=== PATIENT | female | born 1960 | race Caucasian/White ===

== ENCOUNTER 2017-07-11 03:47 | Emergency (ER) | payer OTHER ==
[~2017-07-11] VITALS: Ht 170.2 cm; Wt 104.9 kg
[~2017-07-11 03:47] MED LIST: BUPR-79 PO; CYAN3INJ IM; LISI-461 PO; QUET1TAB30 PO; TRAZ50TA35 PO
[2017-07-11 03:50] VITALS: Ht 170.2 cm; Wt 104.9 kg
[2017-07-11] MEDS ORDERED: GLUCAGON INJ 1 MG in SYRINGE 0 ML IV STA (04:06)
[2017-07-11] MEDS ORDERED: GLUCAGON FOR INJ 1 MG VIAL ONE (04:13)
--- NOTE | 2017-07-11 04:20 | EMERGENCY ROOM VISIT NOTE ---
History First contact with patient: 03:56 Chief Complaint: FOOD BOLUS Stated Complaint: DISCOMFORT-FEELS LIKE SOMETHING IS STUCK History of Present Illness The patient is a 56 year old female who presents to the Emergency Room with complaints of something stuck in her throat. The patient reports that she was eating a pork chop approximately 10 hours ago for dinner and felt it get stuck in her throat. She states she has been unable to swallow her own saliva. She has attempted drinking water but states that it "comes right back up." The patient has a history of gastric bypass 7 years ago and states that she has had food boluses in the past, but they typically pass on their own within 30 minutes. She denies any trouble breathing. She denies any abdominal pain. Review of Systems A complete 10 point review of systems was reviewed with the patient with pertinent positives and negatives as per history of present illness. All else were negative. Past Medical/Surgical History Medical Problems: (1) Coronary artery bypass grafting (2) ESOPHAGEAL REFLUX (3) History of total hysterectomy (4) HYPERTENSION NOS Social History Smoking Status: Never Smoker Alcohol Use: occasionally Drug Use: none Housing Status: lives alone Current/Historical Medications Scheduled Lisinopril (Zestril), 10 MG PO QAM Quetiapine Fumarate (Seroquel), 25 MG PO HS Trazodone Hcl (Trazodone), 50 MG PO HS Physical Exam Vital Signs Date Time Temp Pulse Resp B/P (MAP) Pulse Ox O2 Delivery O2 Flow Rate FiO2 07/11/17 06:21 72 16 171/99 97 Room Air 07/11/17 05:06 71 24 170/99 96 Room Air 07/11/17 04:08 98 Room Air 98 07/11/17 03:50 36.8 80 16 173/103 98 Room Air Physical Exam VITALS: Vitals are noted on the nurse's note and reviewed by myself. Vital signs stable. GENERAL: This is a 56-year-old female, spitting into an emesis bag, well- developed well-nourished. MOUTH: Mucous membranes moist, airway patent. HEART: Regular rate and rhythm without murmurs gallops or rubs. LUNGS: Clear to auscultation bilaterally without wheezes, rales or rhonchi. No retractions or accessory muscle use. ABDOMEN: Positive bowel sounds x 4. Soft, nontender. NEURO: Patient was alert and oriented to person place and time. Medical Decision & Procedures Medications Administered Medications (Trade) Dose Ordered Sig/Shane Route Start Time Stop Time Status Last Admin Dose Admin Glucagon (Glucagon Inj) 1 mg STK-MED ONCE .ROUTE 07/11/17 04:13 07/11/17 04:14 DC 07/11/17 04:17 1 MG Diazepam (Valium Inj) 5 mg NOW STAT IV 07/11/17 04:58 07/11/17 04:59 DC 07/11/17 05:06 5 MG ED Course The patient was evaluated as above. Labs were drawn and IV access was obtained. Patient was medicated with 1 mg Glucagon IV. Patient was given 5 mg Valium IV. Patient was reevaluated. She was unable to pass the food bolus. Dr. Schaefer of gastroenterology was consulted. He will take the patient to the OR for endoscopy. Patient was taken to the OR for endoscopy and food bolus removal. Medical Decision The patient was evaluated as above. She presents with inability to swallow saliva after a food bolus. Patient was eating a pork chop yesterday evening and felt something get stuck in her throat. She was treated with glucagon and Valium without success. She was taken to the OR by Dr. Schaefer for endoscopy. Medication Reconcilliation Current Medication List: was personally reviewed by me Blood Pressure Screening Patient's blood pressure: Elevated blood pressure Blood pressure disposition: Elevated BP felt to be situational Impression Primary Impression: Food impaction of esophagus Departure Information Referrals Antwan Lee M.D. (PCP) Patient Instructions My [facility] Problem Qualifiers Primary Impression: Food impaction of esophagus Encounter type: initial encounter Qualified Codes: T18.128A - Food in esophagus causing other injury, initial encounter
[2017-07-11] MEDS ORDERED: DIAZEPAM INJ 5 MG/ML 2 ML CARP IV STA (04:58)
[2017-07-11 06:21] VITALS: O2SAT 97
[2017-07-11] MEDS ORDERED: PROPOFOL IV EMULSION 10 MG/ML 20 ML VIAL IV ONE (06:53)
[2017-07-11] MEDS ORDERED: LIDOCAINE HCL 2% 2 ML VIAL (20MG/ML) ONE (06:53)
[2017-07-11] MEDS ORDERED: SUCCINYLCHOLINE CHLORIDE 20 MG/ML 10 ML VIAL IV ONE (06:53)
[2017-07-11] MEDS ORDERED: FENTANYL CITRATE INJ 50 MCG/1 ML 2 ML VIAL ONE ×2 (06:56→07:54)
[2017-07-11] MEDS ORDERED: SODIUM CHLORIDE 0.9% 500ML 500 ML IV SCH (07:18)
--- NOTE | 2017-07-11 07:18 | Endo History and Physical ---
History & Physical Date of Service: Jul 11, 2017. Chief Complaint: food bolus with pork chop Referring Physician: History of Present Illness food bolus began last evening Past Surgical History Hx Post-Op Nausea and Vomiting: Yes Social History Smoking Status: Never Smoker Allergies Coded Allergies: Aspirin (Verified Allergy, Unknown, HIVES, 07/11/17) Caffeine (Verified Allergy, Unknown, HIVES, 07/11/17) Cinnamedrine (Verified Allergy, Unknown, HIVES, 07/11/17) Current Medications Reported Home Medications Medications Dose Route/Sig Max Daily Dose Days Date Category Trazodone (Trazodone HCl) 50 Mg Tab 50 Mg PO HS 10/19/12 Reported Zestril (Lisinopril) 10 Mg Tab 10 Mg PO QAM 10/19/12 Reported Vital Signs Weight (Kilograms): 104.900 Height (Feet): 5 Height (Inches): 7.00 Date Time Temp Pulse Resp B/P (MAP) Pulse Ox O2 Delivery O2 Flow Rate FiO2 07/11/17 06:21 72 16 171/99 97 Room Air 07/11/17 05:06 71 24 170/99 96 Room Air 07/11/17 04:08 98 Room Air 98 07/11/17 03:50 36.8 80 16 173/103 98 Room Air Physical Exam General Appearance: WD/WN, no apparent distress Respiratory/Chest: Auscultation: breath sounds normal Cardiovascular: Heart Auscultation: RRR Abdomen: Bowel Sounds: normal Inspection & Palpation: soft, non-distended, no tenderness, guarding & rebound Assessment and Plan EGD for food bolus removal
[2017-07-11] MEDS ORDERED: NALOXONE HCL 0.4 MG/1 ML VIAL/CARP IV PRN (07:30)
[2017-07-11] MEDS ORDERED: MEPERIDINE HCL 25 MG/ML CARP IV PRN (07:30)
[2017-07-11] MEDS ORDERED: LABETALOL HCL IV 5 MG/ML 20ML IV PRN (07:30)
[2017-07-11] MEDS ORDERED: EpHEDrine SULFATE INJ 50 MG/ML AMP IV PRN (07:30)
[2017-07-11] MEDS ORDERED: FLUMAZENIL 0.1 MG/1 ML 10 ML VIAL IV PRN (07:30)
[2017-07-11] MEDS ORDERED: ATROPINE SULFATE 0.1 MG/ML 5ML SYR IV PRN (07:30)
[2017-07-11] MEDS ORDERED: ONDANSETRON INJ 2 MG/ML 2 ML VIAL IV PRN (07:30)
[2017-07-11] MEDS ORDERED: HYDROmorphone INJ 2 MG/ML SYR/VIAL IV PRN (07:30)
[2017-07-11] MEDS ORDERED: FENTANYL CITRATE INJ 50 MCG/1 ML 2 ML VIAL IV PRN (07:30)
[2017-07-11] MEDS ORDERED: PHENYLEPHRINE 100MCG/ML 5ML SYR IV PRN (07:30)
[2017-07-11] MEDS ORDERED: DEXAMETHASONE SOD INJ 4 MG/ML VIAL ONE (07:43)
[2017-07-11] MEDS ORDERED: ONDANSETRON INJ 2 MG/ML 2 ML VIAL ONE (07:43)
--- NOTE | 2017-07-11 08:02 | Discharge Instructions ---
Endoscopy Patient Instructions Date / Procedure(s) Performed Jul 11, 2017. EGD Allergy Information Coded Allergies: Aspirin (Verified Allergy, Unknown, HIVES, 07/11/17) Caffeine (Verified Allergy, Unknown, HIVES, 07/11/17) Cinnamedrine (Verified Allergy, Unknown, HIVES, 07/11/17) Discharge Date / Findings Jul 11, 2017. food bolus removed and advanced into the small bowel Medication Instructions Restart Stopped Medication(s): Reported Home Medications Medications Dose Route/Sig Max Daily Dose Days Date Category Trazodone (Trazodone HCl) 50 Mg Tab 50 Mg PO HS 10/19/12 Reported Zestril (Lisinopril) 10 Mg Tab 10 Mg PO QAM 10/19/12 Reported Carafate 1 gram susp four times daily for 4 weeks Reported Home Medications Medications Dose Route/Sig Max Daily Dose Days Date Category Trazodone (Trazodone HCl) 50 Mg Tab 50 Mg PO HS 10/19/12 Reported Zestril (Lisinopril) 10 Mg Tab 10 Mg PO QAM 10/19/12 Reported Carafate 1 gram susp four times daily for 4 weeks Provider Instructions Activity Restrictions - No exercising or heavy lifting for 24 hours. - Do not drink alcohol the day of the procedure. - Do not drive a car or operate machinery until the day after the procedure. - Do not make any important decisions or sign important papers in 24 hours after the procedure. Following Day: - Return to full activity which may include returning to work/school. Diet Start your diet with liquids and light foods (jello, soup, juice, toast). Then eat your usual diet if not nauseated. Treatment For Common After Affects For mild abdominal pain, bloating, or excessive gas: - Rest - Eat lightly - Lie on right side Follow-Up Information Follow-up with as scheduled Anesthesia Information What You Should Know You have had a procedure that required some medicine to reduce anxiety and discomfort. This treatment is called moderate sedation. After receiving the treatment, you may be sleepy, but you will be able to breathe on your own. The effects of the treatment may last for several hours. Follow these instructions along with Activity/Diet recommendations noted above: * Do NOT do anything where dizziness or clumsiness would be dangerous. * Rest quietly at home today, then you can be up and about tomorrow. * Have a responsible person stay with you the rest of today. * You may have had an I.V. today. If so, you may take the dressing off later today. Recommendations Call your doctor if: * Trouble breathing * Continuous vomiting for more than 24 hours * Temperature above 101 degrees * Severe abdominal pain or bloating * Pain not relieved by pain medicine ordered * There is increased drainage or redness from any incision * A large amount of rectal bleeding greater than 2-3 tablespoons. (If you had a polyp/s removed or have hemorrhoids, a small amount of blood - from the rectum is to be expected.) * You have any unanswered questions or concerns. IN THE EVENT OF A SERIOUS EMERGENCY, GO TO THE NEAREST EMERGENCY ROOM Your discharge instructions were prepared by provider Nba Schaefer. Patient Instructions Signature Page Yuki Sethi Patient (or Guardian) Signature/Date: I have read and understand the instructions given to me by my caregivers. Caregiver/RN/Doctor Signature/Date: The above-named patient and/or guardian has received patient instructions on this date. + Original Patient Signature Page (only) stays with chart. Please make copy for patient.
[2017-07-11] MEDS ORDERED: BACITRACIN OINT 15 GM TUBE ONE (08:05)
--- NOTE | 2017-07-11 08:12 | GI REPORT ---
Procedure Date: 07/11/2017 7:04 AM Procedure: Upper GI endoscopy Indications: Dysphagia, Foreign body in the esophagus Medicines: General Anesthesia Complications: No immediate complications. Estimated blood loss: None. Estimated Blood Loss: Estimated blood loss: none. Estimated blood loss: none. Procedure: Pre-Anesthesia Assessment: - Prior to the procedure, a History and Physical was performed, and patient medications and allergies were reviewed. The patient's tolerance of previous anesthesia was also reviewed. The risks and benefits of the procedure and the sedation options and risks were discussed with the patient. All questions were answered, and informed consent was obtained. Prior Anticoagulants: The patient has taken no previous anticoagulant or antiplatelet agents. ASA Grade Assessment: II - A patient with mild systemic disease. After reviewing the risks and benefits, the patient was deemed in satisfactory condition to undergo the procedure. After obtaining informed consent, the endoscope was passed under direct vision. Throughout the procedure, the patient's blood pressure, pulse, and oxygen saturations were monitored continuously. The Scope was introduced through the mouth, and advanced to the jejunum. The upper GI endoscopy was accomplished without difficulty. The patient tolerated the procedure well. Findings: The examined esophagus was normal. Food was found in the lower third of the esophagus and at the gastroesophageal junction. Removal of food was accomplished. removed by combinatiom of snare removal and gentle advancement Evidence of a gastric bypass was found. A gastric pouch with a normal size was found containing food debris and suture material. The staple line appeared intact. The gastrojejunal anastomosis was characterized by congestion. This was traversed. The [id number] limb was characterized by healthy appearing mucosa. The examined jejunum was normal. Impression: - Normal esophagus. - Food in the lower third of the esophagus and at the gastroesophageal junction. Removal was successful. - Gastric bypass with a normal-sized pouch and intact staple line. Gastrojejunal anastomosis characterized by congestion. Recommendation: - Discharge patient to home (ambulatory). - Mechanical soft diet today. - Continue present medications. - Use sucralfate suspension 1 gram PO QID for 4 weeks. MD Nba Sarkar MD 07/11/2017 8:11:34 AM This report has been signed electronically. Note Initiated On: 07/11/2017 7:04 AM I attest to the content of the Intraoperative Record and orders documented therein, exceptions below
--- NOTE | 2017-07-11 08:26 | Anesthesiology Progress Note ---
Anesthesia Post Op Note Date & Time Jul 11, 2017 at 08:25 Vital Signs Pain Intensity: 0 Vital Signs Past 12 Hours Date Time Temp Pulse Resp B/P (MAP) Pulse Ox O2 Delivery O2 Flow Rate FiO2 07/11/17 08:06 37.1 80 16 166/93 96 Room Air 07/11/17 06:21 72 16 171/99 97 Room Air 07/11/17 05:06 71 24 170/99 96 Room Air 07/11/17 04:08 98 Room Air 98 07/11/17 03:50 36.8 80 16 173/103 98 Room Air Notes Mental Status: alert / awake / arousable, participated in evaluation Pt Amnestic to Procedure: Yes Nausea / Vomiting: adequately controlled Pain: adequately controlled Airway Patency, RR, SpO2: stable & adequate BP & HR: stable & adequate Hydration State: stable & adequate Anesthetic Complications: no major complications apparent The patient did well. She had a very small skin tear on her L cheek from the ETT tape. Bacitracin was dabbed on it. She is awake and comfortable in the PACU.
--- NOTE | 2017-07-11 08:28 | GASTROINTESTINAL CONSULTATION ---
DATE OF CONSULTATION: 07/11/2017 EMERGENCY ROOM GASTROINTESTINAL CONSULT CHIEF COMPLAINT: Food bolus, unable to handle saliva. HISTORY OF PRESENT ILLNESS: This is a 56-year-old white female who was eating pork chops last evening. The patient developed inability to swallow and handle her saliva or take clears. She has had similar episodes of this in the past; however, was always able to regurgitate or the food would eventually pass. In this instance it had been several hours and she presented to the Emergency Room. There was no hematemesis or coffee ground emesis. She has not had any reports of chronic weight loss liquid dysphagia. PAST MEDICAL HISTORY: Includes hypertension and morbid obesity for which she underwent gastric bypass surgery in 2007 at [facility]. She also had a partial hysterectomy with ovaries intact and in addition she had coronary artery bypass grafting. ALLERGIES: No known drug allergies. MEDICATIONS: Lisinopril, Seroquel and trazodone. FAMILY HISTORY: Noncontributory. SOCIAL HISTORY: Denies tobacco use. Occasionally uses alcoholic beverages, lives alone. REVIEW OF SYSTEMS: Otherwise noncontributory based on 13-point exam except for noted above. The patient has never had an upper endoscopy by her recollection to remove a food bolus. PHYSICAL EXAMINATION: VITAL SIGNS: On admission 173/103, temperature 36.8, heart rate 80, respirations 16, and 98% on room air. The patient was given glucagon and Valium without benefit. GENERAL: Today the patient is awake, alert and oriented x3. HEENT: Sclerae are anicteric, conjunctiva moist. Oral mucosa moist. HEART: Normal S1, S2. LUNGS: Clear to auscultation. ABDOMEN: Soft, flat, nontender, nondistended with good bowel sounds. EXTREMITIES: Without clubbing, cyanosis or edema. RECTAL: Deferred. The patient is in no acute distress, but has a bag to expectorate saliva. There is no pain in the chest or shortness of breath. IMPRESSION AND PLAN: The patient with evidence of a food bolus obstruction. Will plan for urgent EGD for food bolus removal and assessment. Further recommendations to follow once the procedure is completed.
[2017-07-11 08:50] VITALS: BP 148/79; PULSE 70; TEMP 37; O2SAT 93
[2017-07-11 09:20] VITALS: BP 142/83; PULSE 84; TEMP 37; O2SAT 94
[2017-07-11 09:50] VITALS: BP 141/67; PULSE 70; TEMP 37; O2SAT 92
== END 2017-07-11 06:29 | disposition home or self-care (01) ==
LOC: C.EDB 03:48
DX: T18.108A Unspecified foreign body in esophagus causing other injury, initial encounter (principal); X58.XXXA Exposure to other specified factors, initial encounter; I10 Essential (primary) hypertension; K21.9 Gastro-esophageal reflux disease without esophagitis; E66.9 Obesity, unspecified; Z90.710 Acquired absence of both cervix and uterus; Z98.84 Bariatric surgery status

== ENCOUNTER → 2017-09-12 | Day surgery (SDC) | payer OTHER ==
[2017-07-29 15:10] VITALS: Ht 170.2 cm; Wt 97.7 kg
[~2017-09-12] VITALS: Ht 170.2 cm; Wt 97.7 kg
[~2017-09-12] MED LIST changes: -BUPR-79 PO; -CYAN3INJ IM; +LIDOCAINE HCL 2% 2 ML VIAL (20MG/ML) ONE; +PROPOFOL IV EMULSION 10 MG/ML 20 ML VIAL IV ONE; +SODIUM CHLORIDE 0.9% 500ML 500 ML IV ONE
--- NOTE | 2017-09-12 13:21 | Endo History and Physical ---
History & Physical Date of Service: Sep 12, 2017. Chief Complaint: Dysphagia Referring Physician: Khushboo Wilhelm History of Present Illness dysphagia Past Surgical History Hx Cardiac Surgery: No Hx Internal Defibrillator: No Hx Pacemaker: No Hx Abdominal Surgery: Yes (GASTRIC BYPASS, HYSTER) Hx of Implantable Prosthesis: No Hx Post-Op Nausea and Vomiting: No Hx Cancer Surgery: No Hx Thoracic Surgery: No Hx Orthopedic: No Hx Urinary Tract Surgery: No Family History None Social History Smoking Status: Never Smoker Hx Substance Use: No Hx Alcohol Use: Yes (OCCASIONAL) Allergies Coded Allergies: Aspirin (Verified Allergy, Unknown, HIVES, 07/29/17) Caffeine (Verified Allergy, Unknown, HIVES, 07/29/17) Cinnamedrine (Verified Allergy, Unknown, HIVES, 07/29/17) Current Medications Reported Home Medications Medications Dose Route/Sig Max Daily Dose Days Date Category Seroquel (Quetiapine Fumarate) 25 Mg Tab 25 Mg PO HS 10/19/12 Reported Trazodone (Trazodone HCl) 50 Mg Tab 50 Mg PO HS 10/19/12 Reported Zestril (Lisinopril) 10 Mg Tab 10 Mg PO QAM 10/19/12 Reported Vital Signs Weight (Kilograms): 97.73 Height (Feet): 5 Height (Inches): 7 Date Time Temp Pulse Resp B/P (MAP) Pulse Ox O2 Delivery O2 Flow Rate FiO2 09/12/17 12:55 36.5 60 20 157/94 (115) 98 Room Air Physical Exam General Appearance: WD/WN, no apparent distress Respiratory/Chest: Auscultation: breath sounds normal Cardiovascular: Heart Auscultation: RRR Abdomen: Bowel Sounds: normal Inspection & Palpation: soft, non-distended, no tenderness, guarding & rebound Assessment and Plan EGd with possible bx/dilation for dysphagia
--- NOTE | 2017-09-12 14:05 | Discharge Instructions ---
Endoscopy Patient Instructions Date / Procedure(s) Performed Sep 12, 2017. EGD Allergy Information Coded Allergies: Aspirin (Verified Allergy, Unknown, HIVES, 07/29/17) Caffeine (Verified Allergy, Unknown, HIVES, 07/29/17) Cinnamedrine (Verified Allergy, Unknown, HIVES, 07/29/17) Discharge Date / Findings Sep 12, 2017. ? hypertonic LES - Medication Instructions Restart Stopped Medication(s): Reported Home Medications Medications Dose Route/Sig Max Daily Dose Days Date Category Seroquel (Quetiapine Fumarate) 25 Mg Tab 25 Mg PO HS 10/19/12 Reported Trazodone (Trazodone HCl) 50 Mg Tab 50 Mg PO HS 10/19/12 Reported Zestril (Lisinopril) 10 Mg Tab 10 Mg PO QAM 10/19/12 Reported Reported Home Medications Medications Dose Route/Sig Max Daily Dose Days Date Category Seroquel (Quetiapine Fumarate) 25 Mg Tab 25 Mg PO HS 10/19/12 Reported Trazodone (Trazodone HCl) 50 Mg Tab 50 Mg PO HS 10/19/12 Reported Zestril (Lisinopril) 10 Mg Tab 10 Mg PO QAM 10/19/12 Reported Provider Instructions Activity Restrictions - No exercising or heavy lifting for 24 hours. - Do not drink alcohol the day of the procedure. - Do not drive a car or operate machinery until the day after the procedure. - Do not make any important decisions or sign important papers in 24 hours after the procedure. Following Day: - Return to full activity which may include returning to work/school. Diet Start your diet with liquids and light foods (jello, soup, juice, toast). Then eat your usual diet if not nauseated. Treatment For Common After Affects For mild abdominal pain, bloating, or excessive gas: - Rest - Eat lightly - Lie on right side office visit in GI clinic with me over next few weeks may plan for barium esophagram may need motility assessment Follow-Up Information Follow-up with Khushboo Wilhelm as scheduled Anesthesia Information What You Should Know You have had a procedure that required some medicine to reduce anxiety and discomfort. This treatment is called moderate sedation. After receiving the treatment, you may be sleepy, but you will be able to breathe on your own. The effects of the treatment may last for several hours. Follow these instructions along with Activity/Diet recommendations noted above: * Do NOT do anything where dizziness or clumsiness would be dangerous. * Rest quietly at home today, then you can be up and about tomorrow. * Have a responsible person stay with you the rest of today. * You may have had an I.V. today. If so, you may take the dressing off later today. Recommendations Call your doctor if: * Trouble breathing * Continuous vomiting for more than 24 hours * Temperature above 101 degrees * Severe abdominal pain or bloating * Pain not relieved by pain medicine ordered * There is increased drainage or redness from any incision * A large amount of rectal bleeding greater than 2-3 tablespoons. (If you had a polyp/s removed or have hemorrhoids, a small amount of blood - from the rectum is to be expected.) * You have any unanswered questions or concerns. IN THE EVENT OF A SERIOUS EMERGENCY, GO TO THE NEAREST EMERGENCY ROOM Your discharge instructions were prepared by provider Nba Schaefer. Patient Instructions Signature Page Yuki Sethi Patient (or Guardian) Signature/Date: I have read and understand the instructions given to me by my caregivers. Caregiver/RN/Doctor Signature/Date: The above-named patient and/or guardian has received patient instructions on this date. + Original Patient Signature Page (only) stays with chart. Please make copy for patient.
--- NOTE | 2017-09-12 14:09 | GI REPORT ---
Procedure Date: 09/12/2017 1:24 PM Procedure: Upper GI endoscopy Indications: Dysphagia Medicines: Propofol per Anesthesia Complications: No immediate complications. Estimated blood loss: None. Estimated Blood Loss: Estimated blood loss: none. Procedure: Pre-Anesthesia Assessment: - Prior to the procedure, a History and Physical was performed, and patient medications and allergies were reviewed. The patient's tolerance of previous anesthesia was also reviewed. The risks and benefits of the procedure and the sedation options and risks were discussed with the patient. All questions were answered, and informed consent was obtained. Prior Anticoagulants: The patient has taken no previous anticoagulant or antiplatelet agents. ASA Grade Assessment: II - A patient with mild systemic disease. After reviewing the risks and benefits, the patient was deemed in satisfactory condition to undergo the procedure. After obtaining informed consent, the endoscope was passed under direct vision. Throughout the procedure, the patient's blood pressure, pulse, and oxygen saturations were monitored continuously. The scope was introduced through the mouth, and advanced to the jejunum. The upper GI endoscopy was accomplished without difficulty. The patient tolerated the procedure well. Findings: The examined esophagus was normal. A hypertonic lower esophageal sphincter was found. There was mild resistance to endoscope advancement into the stomach. The Z-line was regular. A TTS dilator was passed through the scope. Dilation with an 18-19-20 mm balloon dilator was performed to 18 mm, 19 mm and 20 mm. The dilation site was examined and showed mild improvement in luminal narrowing. Evidence of a gastric bypass was found. A gastric pouch with a normal size was found containing simon. The staple line appeared intact. The gastrojejunal anastomosis was characterized by healthy appearing mucosa. This was traversed. The [id number] limb was characterized by healthy appearing mucosa. Impression: - Normal esophagus. - Gastric bypass with a normal-sized pouch and intact staple line. Gastrojejunal anastomosis characterized by healthy appearing mucosa. - No specimens collected. Recommendation: - Discharge patient to home (ambulatory). - Return to GI clinic at appointment to be scheduled. - May consider barium swallow with tablet and possible HREM to exclude achalasia MD Nba Sarkar MD 09/12/2017 2:09:17 PM This report has been signed electronically. Note Initiated On: 09/12/2017 1:24 PM I attest to the content of the Intraoperative Record and orders documented therein, exceptions below
--- NOTE | 2017-09-12 14:18 | Anesthesiology Progress Note ---
Anesthesia Post Op Note Date & Time Sep 12, 2017 at 14:18 Vital Signs Pain Intensity: 0 Vital Signs Past 12 Hours Date Time Temp Pulse Resp B/P (MAP) Pulse Ox O2 Delivery O2 Flow Rate FiO2 09/12/17 14:07 53 18 143/72 (95) 96 Room Air 09/12/17 13:52 76 16 128/76 (93) 95 Room Air 09/12/17 12:55 36.5 60 20 157/94 (115) 98 Room Air Notes Mental Status: alert / awake / arousable, participated in evaluation Pt Amnestic to Procedure: Yes Nausea / Vomiting: adequately controlled Pain: adequately controlled Airway Patency, RR, SpO2: stable & adequate BP & HR: stable & adequate Hydration State: stable & adequate Anesthetic Complications: no major complications apparent
[2017-09-12 14:22] VITALS: BP 160/82; PULSE 53; O2SAT 96
== END ==
LOC: C.GI 12:19
PROVIDERS: ATTEND Internal Medicine Gastroenterology
DX: R13.10 Dysphagia, unspecified (principal); K21.9 Gastro-esophageal reflux disease without esophagitis; I10 Essential (primary) hypertension; F41.9 Anxiety disorder, unspecified; E66.9 Obesity, unspecified; Z98.84 Bariatric surgery status; Z90.710 Acquired absence of both cervix and uterus; Z88.6 Allergy status to analgesic agent

== ENCOUNTER 2020-01-08 07:40 | Observation (INO) ==
--- OUTSIDE RECORDS SUMMARY | 2020-01-08 07:42 | External Medical Summary | Continuity of Care Document ---
:1960 Author Name Yamile Cox, Provider Address Unavailable Unavailable , Care Team Providers Name Role Phone Unavailable Unavailable Unavailable TERESA SILVESTRE Unavailable Unavailable Unavailable Unavailable Unavailable Problems Tinnitus of both ears (388.30) (H93.13) Rhinitis (472.0) (J31.0) Nasal congestion (478.19) (R09.81) Ringing In The Ears Which Pulsates Eustachian tube dysfunction (381.81) (H69.80) Hypertrophy of nasal turbinates (478.0) (J34.3) Acquired deviated nasal septum (470) (J34.2) Hypertension (401.9) (I10) Allergies and Adverse Reactions No Known Drug Allergies (Allergy) Medications buPROPion HCl ER (SR) 150 MG Oral Tablet Extended Release 12 Hour , M.D. Refills: 0 SEROquel 50 MG Oral Tablet , M.D. Refills: 0 Cyanocobalamin 1000 MCG/ML Injection Solution , M.D. Refills: 0 Lisinopril 10 MG Oral Tablet , M.D. Refills: 0 Hydrocortisone Acetate 1 % CREA , M.D. Refills: 0 Zoloft 100 MG Oral Tablet , M.D. Refills: 0 Vitamin D CAPS , M.D. Refills: 0 Multi-Vitamin Gummies Oral Tablet Chewable , M.D. Refills: 0 Procedures History of Tonsillectomy With Adenoidectomy Status: Completed History of Hysterectomy Status: Complete d History of Gastric Surgery For Morbid Obesity Gastric Bypass Status: Completed Immunizations Immunizations not documented Family History Unknown Family Member Family history of Diabetes Mellitus (V18.0) Status: Active Comments: Family History Family history of Hypertension (V17.49) Status: Active Comments: Family History Social History - Smoking Status Never smoked tobacco Plan of Treatment Planned Observations Planned Goals not documented Results No Known Results Results not documented
--- OUTSIDE RECORDS SUMMARY | 2020-01-08 07:43 | External Medical Summary | Continuity of Care Document ---
:1960 Author Name Yamile Cox, Provider Address Unavailable Unavailable , Care Team Providers Name Role Phone Unavailable Unavailable Unavailable TERESA SILVESTRE Unavailable Unavailable Unavailable Unavailable Unavailable Problems Ringing In The Ears Which Pulsates Nasal congestion (478.19) (R09.81) Rhinitis (472.0) (J31.0) Hypertension (401.9) (I10) Acquired deviated nasal septum (470) (J34.2) Hypertrophy of nasal turbinates (478.0) (J34.3) Eustachian tube dysfunction (381.81) (H69.80) Tinnitus of both ears (388.30) (H93.13) Allergies and Adverse Reactions No Known Drug [...]
[2020-01-08] MEDS ORDERED: ONDANSETRON INJ 2 MG/ML 2 ML VIAL IV STA (08:05)
[2020-01-08] MEDS ORDERED: KETOROLAC TROMETHAMINE 15 MG/ML VIAL IV STA (08:05)
[2020-01-08] MEDS ORDERED: SODIUM CHLORIDE 0.9% 1000ML 1,000 ML IV SCH ×2 (08:05→12:15)
[2020-01-08] MEDS ORDERED: FAMOTIDINE 20MG IV PUSH 20 MG/5 ML SYR IV STA (08:05)
--- NOTE | 2020-01-08 08:19 | Emergency Department Note ---
History of Present Illness General Chief complaint: Vomiting Stated complaint: VOMITING,HEADACHE Time Seen by Provider: 01/08/20 07:47 History of Present Illness Maximum Pain Intensity: 8 Patient is a 59-year-old female with past medical history significant for hypertension, insomnia, anxiety and depression, and who is status post gastric bypass who presents the emergency department for evaluation of the acute onset of nausea and vomiting roughly 14 hrs. ago. Patient relates that she was feeling well was in her usual state of health yesterday. She had a normal dinner, she states that she soft Syrian rice and ground beef. She states that around 1830, she had a cup of tea, subsequently vomited. Since then, she has had near constant nausea and multiple episodes of vomiting, dry heaves and spitting up of saliva. She denies hematemesis. No diarrhea. She tried sipping on tea and eating crackers through the night but the "just came back up." She did not have any medications to try. She reports nausea, a burning indigestion discomfort, but no true abdominal pain. She denies any unusual food or water consumption, no sick contacts at home or work. She has municipal water as a source at home. No foreign travel or camping recently. She denies any associated fever or UTI symptoms. She also reports a constant, throbbing, frontal headache. She does have a history of gastric bypass surgery, denies any complications from this. She does however note that she has had food boluses in the past, generally they have cleared on their own, she only required an EGD for disimpaction of a food bolus once, this was 2 years ago. She does not have a sensation reports that this does not feel like her prior food bolus episodes. She currently rates her headache an 01/10. Home Medications Home Medications Medication Instructions Recorded Confirmed Type amlodipine 5 mg PO QAM 01/08/20 01/08/20 History bupropion HCl 300 mg PO DAILY 01/08/20 01/08/20 History lisinopril 10 mg PO QAM 01/08/20 01/08/20 History quetiapine 25 mg PO HS 01/08/20 01/08/20 History trazodone 50 mg PO HS 01/08/20 01/08/20 History Allergies Allergy/AdvReac Type Severity Reaction Status Date / Time pamabrom [From [facility]] AdvReac Unknown Hives Unverified 01/08/20 08:08 Cinnamedrine Allergy Unknown HIVES Uncoded 09/12/17 15:10 Past Med/Surg History Medical History Anxiety (Chronic) Depression (Chronic) HLD (hyperlipidemia) Hypertension (Chronic) Insomnia (Chronic) Surgical History History of esophagogastroduodenoscopy (EGD) History of gastric bypass History of hysterectomy Family History Other Diabetes Hypertension Social History Smoking Status: Never smoker Hx Alcohol Use: Yes Alcohol Intake Frequency: Monthly or Less Preferred Language: Indonesian marital status: Single Current Living Situation: Alone current occupational status: employed Feels Safe at Home: Yes Review of Systems A total of 10 systems reviewed and were otherwise negative Physical Exam Vital Signs Vital Signs - 24 hr 01/08/20 07:43 01/08/20 09:29 01/08/20 10:14 Temperature 37.1 C Temperature Source Oral Pulse Rate 76 Pulse Rate [Finger] 62 68 Pulse Rhythm Regular Pulse Rhythm [Finger] Pulse Strength Normal Pulse Strength [Finger] Respiratory Rate 18 20 16 Respiratory Effort / Characteristics Non-Labored Respiratory Depth Normal Normal Respiratory Pattern Blood Pressure 162/93 H Blood Pressure [Right Arm] 183/105 H 154/85 H Blood Pressure Mean 116 Blood Pressure Mean [Right Arm] 131 108 Blood Pressure Position Sitting Blood Pressure Position [Right Arm] Pulse Oximetry 96 98 95 Oxygen Delivery Method Room Air Room Air Room Air Sepsis Recent Fever Within 48 Hours No Sepsis New/Unexplained Change in Mental Status No Sepsis Action Taken by Nursing No Action Required 01/08/20 11:46 01/08/20 13:05 Temperature 36.7 C Temperature Source Oral Pulse Rate Pulse Rate [Finger] 71 64 Pulse Rhythm Pulse Rhythm [Finger] Regular Pulse Strength Pulse Strength [Finger] Normal Respiratory Rate 16 20 Respiratory Effort / Characteristics Non-Labored Spontaneous Respiratory Depth Normal Respiratory Pattern Regular Blood Pressure Blood Pressure [Right Arm] 169/87 H 157/81 H Blood Pressure Mean Blood Pressure Mean [Right Arm] 114 106 Blood Pressure Position Blood Pressure Position [Right Arm] Sitting Pulse Oximetry 95 97 Oxygen Delivery Method Room Air Room Air Sepsis Recent Fever Within 48 Hours Sepsis New/Unexplained Change in Mental Status Sepsis Action Taken by Nursing CONSTITUTIONAL: Patient is an overweight 59-year-old female who is awake and alert and sitting on the chair at the bedside in mild distress due to her stated complaint. EYES: Pupils equal, round, reactive to light and accommodation. EOMs intact without nystagmus. Sclera are anicteric. ENT: Tympanic membranes intact, with normal landmarks. External canals are clear. Oral and nasopharynx are clear. Mucous membranes are moist, no lesions, tongue and gums appear normal. CARDIOVASCULAR: Regular rate and rhythm, with normal S1 and S2, no murmur or gallop or rub is heard. No carotid bruits auscultated. No JVD. Peripheral pulses easily palpable. RESPIRATORY: Breath sounds equal and clear to auscultation without wheezes, rales, or rhonchi heard. Full and equal chest expansion without accessory muscle use or retractions. ABDOMEN: Well-healed surgical scars are noted. Bowel sounds are hypoactive. Abdomen is soft, obese, nondistended, mildly tender to palpation in the upper abdomen, in the epigastric and left upper quadrant, without guarding or rebound. Remainder of the abdomen is nontender to palpation. There is no pain in the right lower quadrant over McBurney's point. INTEGUMENTARY: No lesions or rash, normal skin turgor. LYMPH: No lymphadenopathy. Course Course The patient was seen and assessed as above. Old records were reviewed. She presents to the emergency department for roughly 12 hours of nausea, vomiting/dry heaves, indigestion with associated headache. She has a benign abdominal exam. She does have a history of food bolus in the past, her presentation today, per her impression, does not appear consistent with that however. IV lock was initiated and laboratory studies were collected. CBC with differential, CMP, lipase and urinalysis were ordered. Patient was treated with a liter bolus of normal saline solution, Toradol 15 mg IV, Zofran 4 mg IV, and Pepcid 20 mg IV. Acute abdominal series was obtained. Laboratory studies noted a normal white count at 8900. No anemia. Left shift noted but no bands. Electrolytes are within normal limits. Renal functions are normal. Transaminases are not elevated. Lipase is within normal limits. The patient was reassessed when she returned from x-ray. She reported that her headache was improving, her stomach was still a little upset, she was still spitting out her saliva, but no eleuterio vomiting. She said she was willing to try ice chips or something to drink, but at this time told her to hold off, until her IV fluids were complete. Acute abdominal series was negative, no evidence for obstruction or free air. History and presentation were reviewed with Dr. Valderrama. Patient was reassessed. She was made aware of the results of her laboratory studies and her x-ray. Her headache is better, she no longer has any indigestion, but she still has a sense of heaviness and fullness in the epigastric region, and is still spitting out her saliva. We will treat her with medications for a possible food bolus. She was placed on continuous cardiac and pulse ox monitoring. She was given Valium 10 mg IV, glucagon 1 mg IV, Reglan 10 mg IV and 1 inch of Nitropaste was applied. Nursing staff notified me roughly 40 minutes after she had been medicated that she was feeling better, the sensation in her epigastrium was no longer there, and she was requesting to try oral fluids. She was given water, and tried this but promptly vomited it back up. The patient was reassessed. At this point, supportive/conservative care for her suspected food bolus has failed. Consultation was placed with GI, I spoke with Dr. Sawant, and he will plan to take her to the endoscopy suite for an EGD later today. He did ask that she be admitted to the medical service, as she will require observation overnight. I spoke with Dr. Piedra, with the [facility] for admission/observation, and she will see the patient. Cardiac monitoring: An order was placed for continuous cardiac monitoring. The monitor shows a normal sinus rhythm and seen 62 and 68 bpm. Administered Medications Discontinued Medications Diazepam (Valium) 10 mg IV NOW STA Stop: 01/08/20 09:35 Last Admin: 01/08/20 10:09 Dose: 10 mg Documented by: [id number] Sodium Chloride (Nss 1000ml) 1,000 mls @ 999 mls/hr IV .Q1H1M PRISCILLA Stop: 01/08/20 09:05 Last Infusion: 01/08/20 09:20 Dose: 0 mls/hr Documented by: [id number] Admin: 01/08/20 08:19 Dose: 999 mls/hr Documented by: [id number] Famotidine (Pepcid 20mg Iv Push) 20 mg in 5 mls @ 2.5 mls/min IV NOW STA Stop: 01/08/20 08:06 Last Admin: 01/08/20 08:19 Dose: 2.5 mls/min Documented by: [id number] Glucagon (Glucagen) 1 mls @ 1 mls/min IV ONE ONE Stop: 01/08/20 09:35 Last Admin: 01/08/20 10:06 Dose: 1 mls/min Documented by: [id number] Ketorolac Tromethamine (Toradol) 15 mg IV NOW STA Stop: 01/08/20 08:06 Last Admin: 01/08/20 08:24 Dose: 15 mg Documented by: [id number] Metoclopramide HCl (Reglan) 10 mg IV NOW STA Stop: 01/08/20 09:35 Last Admin: 01/08/20 10:09 Dose: 10 mg Documented by: [id number] Nitroglycerin (Nitro-Bid 2%) 1 inch EXT NOW STA Stop: 01/08/20 09:35 Last Admin: 01/08/20 10:06 Dose: 1 inch Documented by: [id number] Ondansetron HCl (Zofran) 4 mg IV NOW STA Stop: 01/08/20 08:06 Last Admin: 01/08/20 08:18 Dose: 4 mg Documented by: [id number] Medical Decision Making Differential Diagnosis Differential diagnoses include GERD, gastritis/esophagitis, food bolus, gastroenteritis, pancreatitis, cholelithiasis, cholecystitis, bowel obstruction, intussusception, hernia, among others. Medical Records Attestation: I reviewed the patient's medical records. Home Medications Current Medication List: was personally reviewed by me Laboratory Data Attestation: I reviewed the patient's lab results. Result diagrams: 01/08/20 08:11 01/08/20 08:11 Lab Results 01/08/20 01/08/20 01/08/20 Range/Units 08:11 08:11 11:15 WBC 8.99 (4.8-10.8) K/uL RBC 4.91 (4.2-5.4) M/uL Hgb 14.9 (12.0-16.0) g/dL Hct 44.0 (37-47) % MCV 89.6 (80-100) fL MCH 30.3 (25-34) pg MCHC 33.9 (32-36) g/dL RDW Std Deviation 46.8 H (36.4-46.3) fL RDW Coeff of Rufina 14.3 (11.5-14.5) % Plt Count 310 (130-400) K/uL MPV 9.5 (7.4-10.4) fL Immature Gran % (Auto) 0.1 % Neut % (Auto) 77.7 % Lymph % (Auto) 17.0 % Noble % (Auto) 4.8 % Eos % (Auto) 0.1 % Baso % (Auto) 0.3 % Neut # (Auto) 6.98 H (1.4-6.5) K/uL Lymph # (Auto) 1.53 (1.2-3.4) K/uL Noble # (Auto) 0.43 (0.11-0.59) K/uL Eos # (Auto) 0.01 (0-0.5) K/uL Baso # (Auto) 0.03 (0-0.2) K/uL Immature Gran # (Auto) 0.01 (0.00-0.02) K/uL Sodium 139 (136-145) mmol/L Potassium 3.8 (3.5-5.1) mmol/L Chloride 109 H (98-107) mmol/L Carbon Dioxide 23 (21-32) mmol/L Anion Gap 7.0 (3-11) BUN 15 (7-18) mg/dl Creatinine 0.81 (0.6-1.2) mg/dl Est Cr Clr Drug Dosing 99.6 ml/min Est GFR ( Amer) 90.9 Est GFR (Non-Af Amer) 78.4 BUN/Creatinine Ratio 18.0 (10-20) Glucose 118 H (70-99) mg/dl Calcium 9.0 (8.5-10.1) mg/dl Total Bilirubin 0.8 (0.2-1) mg/dl AST 16 (15-37) U/L ALT 25 (12-78) U/L Alkaline Phosphatase 89 (45-117) U/L Total Protein 8.1 (6.4-8.2) gm/dl Albumin 3.8 (3.4-5.0) gm/dl Globulin 4.3 H (2.5-4.0) gm/dl Albumin/Globulin Ratio 0.9 (0.9-2) Lipase 117 (73-393) U/L Urine Color Dark Yellow Urine Appearance Clear (Clear) Urine pH 5.0 (4.5-7.5) Ur Specific [place] 1.029 (1.000-1.030) Urine Protein Negative (Negative) Urine Glucose (UA) Negative (Negative) Urine Ketones Trace H (Negative) Urine Blood Negative (Negative) Urine Nitrite Negative (Negative) Urine Bilirubin Negative (Negative) Urine Urobilinogen Negative (Negative) Ur Leukocyte Esterase Negative (Negative) Imaging Data Attestation: I personally reviewed and interpreted this imaging study as follows: Radiologist's Impression: XR abdomen 2V w PA chest CLINICAL HISTORY: N/V X 12 HOURS COMPARISON STUDY: Chest x-ray dated 01/05/2010 FINDINGS: There is slightly prominent right infrahilar markings likely representing a vascular summation. There is no lobar consolidation. There is no free intraperitoneal air. There are no abnormally dilated loops of large or small bowel. There are no transition zones to indicate bowel obstruction. There are multiple nonspecific pelvic basin calcifications. IMPRESSION: No evidence of bowel obstruction. No evidence of free air. Blood Pressure Blood Pressure Findings: Elevated blood pressure Blood Pressure Disposition: further management by hospitalist [facility] Narrative See ED Course. Impression & Plan Food impaction of esophagus Discharge Plan Visit Data *Final* Discharge Date/Time: 01/08/20 12:28 Chief Complaint: Vomiting Stated Complaint: VOMITING,HEADACHE ED Provider: Sebastian Valderrama ED Midlevel Provider: Ton Toussaint Discharge Problem: Food impaction of esophagus Patient Disposition: Still a Patient Discharge Instructions Interventions: ED Discharge Assessment Last Done: 01/08/20 12:28 Discharge Problem: Food impaction of esophagus Qualifiers: Encounter type: initial encounter Qualified Code(s): T18.128A - Food in esophagus causing other injury, initial encounter
[2020-01-08 08:34] LABS: Basophils # (auto) 0.03 K/uL (0-0.2); Basophils % (auto) 0.3 %; Eosinophils # (auto) 0.01 K/uL (0-0.5); Eosinophils % (auto) 0.1 %; Hemoglobin 14.9 g/dL (12.0-16.0); Immature Granulocytes # (auto) 0.01 K/uL (0.00-0.02); Immature Granulocytes % (auto) 0.1 %; Lymphocytes # (auto) 1.53 K/uL (1.2-3.4); Mean Corpuscular Hemoglobin 30.3 pg (25-34); Mean Corpuscular Hgb Conc 33.9 g/dL (32-36); Mean Corpuscular Volume 89.6 fL (80-100); Mean Platelet Volume 9.5 fL (7.4-10.4); Monocytes # (auto) 0.43 K/uL (0.11-0.59); Monocytes % (auto) 4.8 %; Neutrophils # (auto) 6.98 K/uL (1.4-6.5); Neutrophils % (auto) 77.7 %; Platelet Count 310 K/uL (130-400); RDW Coefficient of Variation 14.3 % (11.5-14.5); RDW Standard Deviation 46.8 fL (36.4-46.3); Red Blood Count 4.91 M/uL (4.2-5.4); White Blood Count 8.99 K/uL (4.8-10.8)
[2020-01-08 08:50] LABS: Albumin Level 3.8 gm/dl (3.4-5.0); Creatinine Clr Calc Pharmacy 99.6 ml/min; Est GFR (African American) 90.9; Est GFR (Non-African American) 78.4; Potassium 3.8 mmol/L (3.5-5.1)
[2020-01-08 08:53] LABS: Albumin Globulin Ratio 0.9 (0.9-2); Bilirubin,Total 0.8 mg/dl (0.2-1); Globulin 4.3 gm/dl (2.5-4.0); Total Protein 8.1 gm/dl (6.4-8.2)
[2020-01-08] MEDS ORDERED: DIAZEPAM 5 MG/ML INJ 10ML VIAL IV STA (09:34)
[2020-01-08] MEDS ORDERED: GLUCAGON 1 ML IV ONE (09:34)
[2020-01-08] MEDS ORDERED: NITROGLYCERIN 2% OINTMENT 30GM TUBE EXT STA (09:34)
[2020-01-08] MEDS ORDERED: METOCLOPRAMIDE HCL INJ 5 MG/ML 2 ML VIAL IV STA (09:34)
--- NOTE | 2020-01-08 09:53 | XRay Report ---
XR abdomen 2V w PA chest CLINICAL HISTORY: N/V X 12 HOURS COMPARISON STUDY: Chest x-ray dated 01/05/2010 FINDINGS: There is slightly prominent right infrahilar markings likely representing a vascular summat ion. There is no lobar consolidation. There is no free intraperitoneal air. There are no abnormally d ilated loops of large or small bowel. There are no transition zones to indicate bowel obstruction. Th ere are multiple nonspecific pelvic basin calcifications. IMPRESSION: No evidence of bowel obstruction. No evidence of free air. ACT 112: Negative or not required by law. Electronically signed by: Bruno Salomon M.D. 01/08/2020 9:52 AM
[2020-01-08 11:28] LABS: Appearance Urine Clear (Clear); Bilirubin Urine Negative (Negative); Blood Urine Negative (Negative); Color Urine Dark Yellow; Glucose Urine UA Negative (Negative); Ketones Urine Trace (Negative); Leukocyte Esterase Urine Negative (Negative); Nitrite Urine Negative (Negative); Protein Urine Negative (Negative); Specific Gravity Urine 1.029 (1.000-1.030); Urobilinogen Urine Negative (Negative)
[2020-01-08] MEDS ORDERED: ONDANSETRON INJ 2 MG/ML 2 ML VIAL IV PRN ×2 (12:10→15:08)
--- NOTE | 2020-01-08 12:15 | History & Physical Report ---
Date of Service January 08, 2020 Assessment & Plan (1) Food impaction of esophagus: (2) Hypertension: (3) Depression: History of Present Illness Chief Complaint: Nausea/vomiting, difficulty in swallowing Primary Care Provider: Dr. Dorothy Aden Allergies Allergy/AdvReac Type Severity Reaction Status Date / Time pamabrom [From [facility]] AdvReac Unknown Hives Unverified 01/08/20 08:08 Cinnamedrine Allergy Unknown HIVES Uncoded 09/12/17 15:10 Home Medications Home Medications Medication Instructions Recorded Confirmed Type amlodipine 5 mg PO QAM 01/08/20 01/08/20 History bupropion HCl 300 mg PO DAILY 01/08/20 01/08/20 History lisinopril 10 mg PO QAM 01/08/20 01/08/20 History quetiapine 25 mg PO HS 01/08/20 01/08/20 History trazodone 50 mg PO HS 01/08/20 01/08/20 History Past Med/Surg History Medical History (Updated 01/08/20 @ 11:43 by Ton Toussaint) Anxiety (Chronic) Depression (Chronic) Hypertension (Chronic) Insomnia (Chronic) Surgical History (Updated 01/08/20 @ 12:16 by Bere Piedra MD) History of esophagogastroduodenoscopy (EGD) History of gastric bypass History of hysterectomy Social History Smoking Status: Never smoker Hx Alcohol Use: Yes Alcohol Intake Frequency: Monthly or Less Preferred Language: Cambodian marital status: Single Current Living Situation: Alone current occupational status: employed Feels Safe at Home: Yes Results & Data Results & Data ([facility]) Vital Signs (Past 12 Hours) Vital Signs Temp Pulse Pulse Resp BP BP Pulse Ox 01/08/20 11:46 71 16 169/87 H 95 01/08/20 10:14 68 16 154/85 H 95 01/08/20 09:29 62 20 183/105 H 98 01/08/20 07:43 37.1 C 76 18 162/93 H 96 Code Status & VTE Plan VTE Prophylaxis Plan VTE Prophylaxis will be ordered: Yes (1) Food impaction of esophagus Encounter type: initial encounter Qualified Code(s): T18.128A - Food in esophagus causing other injury, initial encounter
[2020-01-08] MEDS ORDERED: HydrALAZINE HCL 20 MG/ML VIAL IV PRN (12:19)
--- NOTE | 2020-01-08 12:28 | History & Physical Report ---
Date of Service January 08, 2020 Assessment & Plan (1) Epigastric discomfort: (2) History of gastric bypass: (3) Food impaction of esophagus: This is a 59-year-old female with PMH of HTN, HLD, anxiety, depression and history of gastric bypass who presents for nausea and vomiting beginning last evening and now has epigastric discomfort and possible food impaction of esophagus. -Developed nausea and vomiting last evening after dinner with inability to keep food down now, concern for food bolus -Kept strict NPO in ED. Discussed with GI, who performed EGD this afternoon, with successful removal of food in distal esophagus as well as dilating esophageal stenosis -Per Dr. Sawant - "NPO today, advance to clear liquids tomorrow if stable. Will need outpatient thoracic surgical follow-up for large hiatal hernia repair in GI follow-up in office" -Antiemetics and gentle fluids. Plan to observe (4) Headache: Likely 2/2 ntg paste patient was given this morning for elevated BP -Removed paste, given 1,000mg tylenol, ice pack for neck (5) Hypertension: Holding amlodipine, lisinopril for now. IV antihypertensives as needed (6) Depression: (7) Anxiety: Continue bupropion tomorrow, planning to hold tonight's Seroquel and Trazodone DVT Ppx: Tony murray Code status: FULL PCP: Lux Aden Dispo: Observation med tele Patient seen in collaboration with Dr. Piedra. Please see addendum. History of Present Illness Chief Complaint: Nausea and vomiting Primary Care Provider: NO PCP This is a 59-year-old female with PMH of HTN, HLD, anxiety, depression and history of gastric bypass who presents for nausea and vomiting beginning last evening. Patient ate dinner of rice and ground beef around 1800 last evening and subsequently afterwards became nauseated and had multiple bouts of emesis. Tried to eat crackers and drink tea later that evening but was unable to keep them down. Remains nauseous with a burning abdominal discomfort. Denies any fever, chills, unusual foods. No sick contacts. Has history of gastric bypass surgery with difficulty of food boluses in the past that she has mainly been able to clear on her own. Has required EGD for disimpaction of food bolus once in 2018. Seen and examined on the floor in 288-1 after EGD. Feeling well aside some post- surgical discomfort of throat and frontal headache that she has had since this morning. Denies fever, chills, lightheadedness, visual changes, chest pain, shortness of breath, abdominal pain, nausea, dysuria, diarrhea or constipation. Allergies Allergy/AdvReac Type Severity Reaction Status Date / Time pamabrom [From [facility]] AdvReac Unknown Hives Unverified 01/08/20 08:08 Cinnamedrine Allergy Unknown HIVES Uncoded 09/12/17 15:10 Home Medications Home Medications Medication Instructions Recorded Confirmed Type amlodipine 5 mg PO QAM 01/08/20 01/08/20 History bupropion HCl 300 mg PO DAILY 01/08/20 01/08/20 History lisinopril 10 mg PO QAM 01/08/20 01/08/20 History quetiapine 25 mg PO HS 01/08/20 01/08/20 History trazodone 50 mg PO HS 01/08/20 01/08/20 History Past Med/Surg History Medical History Anxiety (Chronic) Depression (Chronic) HLD (hyperlipidemia) Hypertension (Chronic) Insomnia (Chronic) Surgical History History of esophagogastroduodenoscopy (EGD) History of gastric bypass History of hysterectomy Family History Other Diabetes Hypertension Social History Smoking Status: Never smoker Hx Alcohol Use: No Hx Substance Use: No Preferred Language: Syriac Communication Ability: Effective Fusion Operator Required: No Beliefs That Will Affect Care: None marital status: Single Current Living Situation: Alone current occupational status: employed Feels Safe at Home: Yes Review of Systems Review of Systems: At least ten systems reviewed and negative except as noted in the HPI. Physical Exam Physical Exam: General Appearance: WD/WN, vitals as above, NAD, sitting up in bed, pleasant, conversing easily Head: normocephalic, atraumatic Eyes: normal inspection, PERRL, conjunctivae normal, anicteric sclerae ENT: external ear and nose normal, oropharynx normal Neck: trachea midline, no thyromegaly normal visual inspection Respiratory: normal respiratory effort, lungs clear to auscultation, no wheeze, rales, rhonchi Cardiovascular: regular rate, rhythm, no murmur, normal peripheral pulses. Vessels: no JVD or carotid bruit Chest: normal inspection of chest Abdomen/GI: normal bowel sounds, soft, nontender, no hepatosplenomegaly Extremities/Musculoskeletal: no cyanosis or clubbing, extremities motor strength 5/5 Neurologic: PERRL, EOMI, accommodation nl, no face palsy, no dysarthria, CN's II-XI intact bilaterally and moves all extremities Psychiatric: A+Ox3, euthymic affect Skin: no rashes, normal color, warm/dry Results & Data Results & Data ([facility]) Vital Signs (Past 12 Hours) Vital Signs Temp Pulse Pulse Resp BP BP Pulse Ox 01/08/20 11:46 71 16 169/87 H 95 01/08/20 10:14 68 16 154/85 H 95 01/08/20 09:29 62 20 183/105 H 98 01/08/20 07:43 37.1 C 76 18 162/93 H 96 Laboratory Results Short CBC 01/08/20 Range/Units 08:11 WBC 8.99 (4.8-10.8) K/uL Hgb 14.9 (12.0-16.0) g/dL Hct 44.0 (37-47) % Plt Count 310 (130-400) K/uL BMP 01/08/20 08:11 Sodium 139 Potassium 3.8 Chloride 109 H Carbon Dioxide 23 BUN 15 Creatinine 0.81 Glucose 118 H Calcium 9.0 Liver Function 01/08/20 Range/Units 08:11 Total Bilirubin 0.8 (0.2-1) mg/dl AST 16 (15-37) U/L ALT 25 (12-78) U/L Alkaline Phosphatase 89 (45-117) U/L Albumin 3.8 (3.4-5.0) gm/dl Urine 01/08/20 Range/Units 11:15 Urine Color Dark Yellow Urine Appearance Clear (Clear) Urine pH 5.0 (4.5-7.5) Ur Specific [place] 1.029 (1.000-1.030) Urine Protein Negative (Negative) Urine Glucose (UA) Negative (Negative) Diagnostic Findings Chest/abd XR: IMPRESSION: No evidence of bowel obstruction. No evidence of free air. Code Status & VTE Plan VTE Prophylaxis Plan VTE Prophylaxis will be ordered: Yes Supervising Physician Co-Signing Physician Notes Patient seen and examined, care coordinated with Latisha Tucker PA-C Labs and images reviewed 59-year-old female with past medical history of gastric bypass surgery, admitted with nausea vomiting, with epigastric discomfort Had prior episode of food bolus requiring EGD [facility] GI team updated, underwent EGD with successful removal of food bolus in distal esophagus, also had dilatation of esophageal stenosis Patient seen post procedure, feels fine, Had headache, given Tylenol Does not have any epigastric discomfort, able to swallow saliva ice chips and sips of water Patient will be kept n.p.o., clear liquid diet in a.m. as tolerated Vitals: As recorded in [facility] Physical exam: General: No sign of distress HEENT unremarkable Heart: Regular S1 and S2 no murmur gallop Lungs: Clear to auscultate no wheeze or rales Abdomen: Soft nontender Extremity: No rash or deformity normal strength Neuro: No focal neurological deficit Assessment and plan: Dysphasia/food impaction of esophageal esophagus/ -Status post EGD with removal of food bolus by GI Large hiatal hernia noted, will need outpatient evaluation with surgery for hernia repair Hold p.o. meds for tonight, Ordered for IV lorazepam for anxiety and insomnia IV hydralazine as needed for hypertensive episode Patient had mild headache as was placed on Nitropaste for hypertensive urgency, patient was n.p.o. Ordered for IV Tylenol as needed P.o. meds will be resumed tomorrow if able to tolerate clears Please refer to further documentation by Latisha Tucker PA-C for discussion of other medical issues Bere Piedra MD (1) Food impaction of esophagus Encounter type: initial encounter Qualified Code(s): T18.128A - Food in esophagus causing other injury, initial encounter
--- NOTE | 2020-01-08 12:58 | Gastrointestinal Consultation ---
Date of Consultation January 08, 2020 Assessment & Plan (1) Food impaction of esophagus: plan for EGD wih possible dilation and removal of food bolus to further evaluate risks/benefits and procedure discussed with patient, who agrees to proceed admit to medicine for monitoring overnight (2) Epigastric discomfort: History of Present Illness History of Present Illness 59 yo female here with food bolus. She notes yesterday she ate beef and rice and has had issues with epigastric discomfort and nausea since then. She is able to swallow her saliva. This happened 2 years ago when she had to have an EGD for a food bolus, but notes those symptoms were worse. Glucagon given in the ER without improvement. labs reviewed. Allergies Allergy/AdvReac Type Severity Reaction Status Date / Time pamabrom [From [facility]] AdvReac Unknown Hives Unverified 01/08/20 08:08 Cinnamedrine Allergy Unknown HIVES Uncoded 09/12/17 15:10 Home Medications Home Medications Medication Instructions Recorded Confirmed Type amlodipine 5 mg PO QAM 01/08/20 01/08/20 History bupropion HCl 300 mg PO DAILY 01/08/20 01/08/20 History lisinopril 10 mg PO QAM 01/08/20 01/08/20 History quetiapine 25 mg PO HS 01/08/20 01/08/20 History trazodone 50 mg PO HS 01/08/20 01/08/20 History Patient History Medical History (Updated 01/08/20 @ 12:57 by Omar Sawant MD) Anxiety (Chronic) Depression (Chronic) HLD (hyperlipidemia) Hypertension (Chronic) Insomnia (Chronic) Surgical History (Updated 01/08/20 @ 12:16 by Bere Piedra MD) History of esophagogastroduodenoscopy (EGD) History of gastric bypass History of hysterectomy Social History Smoking Status: Never smoker Hx Alcohol Use: Yes Alcohol Intake Frequency: Monthly or Less Preferred Language: Syriac marital status: Single Current Living Situation: Alone current occupational status: employed Feels Safe at Home: Yes Review of Systems Constitutional: no fever, no chills and no weight loss Eyes: as per Subjective / HPI Ear, Nose, Mouth, Throat: as per Subjective / HPI Respiratory: no dyspnea and no dyspnea on exertion Cardiovascular: no chest pain and no palpitations Gastrointestinal: as per Subjective / HPI Musculoskeletal: no joint pain and no swelling Integumentary: no rash and no lesions Neurologic: no numbness and no paresthesia Psychiatric: no depression and no anxiety Endocrine: no fatigue Hematologic / Lymphatic: no easy bleeding and no easy bruising Physical Exam Constitutional: WD/WN, vitals as above Eyes: EOM intact bilaterally Neck: normal visual inspection Respiratory: normal respiratory effort, lungs clear to auscultation Cardiovascular: RRR, no murmur, no edema Gastrointestinal (Abdomen): Inspection/Auscultation: abdomen normal to inspection; abdomen not distended Percussion/Palpation: abdomen soft; abdomen nontender and no hepatosplenomegaly Musculoskeletal: Extremities: no cyanosis Gait: normal gait Skin: no rashes, warm and dry Neurologic: moves all extremities Psychiatric: A+Ox3, euthymic affect Results & Data ([facility]) Vital Signs (Past 12 Hours) Vital Signs Temp Pulse Pulse Resp BP BP Pulse Ox 01/08/20 11:46 71 16 169/87 H 95 01/08/20 10:14 68 16 154/85 H 95 01/08/20 09:29 62 20 183/105 H 98 01/08/20 07:43 37.1 C 76 18 162/93 H 96 PG Care Time/CCT Total # of Minutes Spent Total Time Spent with Patient: Total time spent is greater than 50% in coordination of care (as documented) at patient's floor/unit and/or counseling patient: Coding Level of Care Code 13598 Office/OBS Consult Lvl 4 Diagnoses Food impaction of esophagus T18.128A Encounter type: initial encounter Epigastric discomfort R10.13 (1) Food impaction of esophagus Encounter type: initial encounter Qualified Code(s): T18.128A - Food in esophagus causing other injury, initial encounter
--- NOTE | 2020-01-08 13:29 | Anesthesiology Consultation ---
Date of Service January 08, 2020 Assessment & Plan (1) Encounter for pre-operative examination: Chart Review Chart Review: Acceptable Risk for Surgery and Patient NOT seen in Pre Admission Testing Consults Requested none ASA ASA3 Proposed Anesthesia Anesthesia Type: General Risk / Benefits Reviewed With: PT / POA / Parent / Guardian, Accepts Plan and I nformed Consent Obtained History Surgery Operation Date: 01/08/20 12:55 Proposed Procedures p Esophagogastroduodenoscopy Food Bolus - Omar Sawant MD Height/Weight Height: 5 ft 7 in Weight: 123.8 kg Allergies Allergy/AdvReac Type Severity Reaction Status Date / Time pamabrom [From [facility]] AdvReac Unknown Hives Unverified 01/08/20 08:08 Cinnamedrine Allergy Unknown HIVES Uncoded 09/12/17 15:10 Medications Home Medications Medication Instructions Recorded Confirmed Last Taken amlodipine 5 mg PO QAM 01/08/20 01/08/20 Unknown bupropion HCl 300 mg PO DAILY 01/08/20 01/08/20 Unknown lisinopril 10 mg PO QAM 01/08/20 01/08/20 Unknown quetiapine 25 mg PO HS 01/08/20 01/08/20 Unknown trazodone 50 mg PO HS 01/08/20 01/08/20 Unknown NPO Date Last Intake of Fluids: 01/07/20 Time Last Intake of Fluids: 12:00 Date Last Intake of Solids: 01/07/20 Time Last Intake of Solids: 18:30 Past Medical History Medical History Anxiety (Chronic) Depression (Chronic) HLD (hyperlipidemia) Hypertension (Chronic) Insomnia (Chronic) Exercise / Class Metabolic Activity II 4-5 Yardwork/Stairs/Walk up hill Negative for chest pain or shortness of breath. Past Family History Family History Other Diabetes Hypertension Past Surgical History Surgical History History of esophagogastroduodenoscopy (EGD) History of gastric bypass History of hysterectomy Past Anesthesia History No Hx of Anesthesia Complications History of PONV No Hx of PONV Social History Smoking Status: Never smoker Hx Alcohol Use: Yes Review of Systems Patient with suspected food bolus - belly pain, n/v when swallowing liquids. Able to swallow her own secretions. Physical Exam Vital Signs Last Vital Signs Temp 36.7 C 01/08/20 13:05 Pulse 64 01/08/20 13:05 Resp 20 01/08/20 13:05 BP 157/81 H 01/08/20 13:05 Pulse Ox 97 01/08/20 13:05 Constitutional + morbidly obese ENMT Mouth: no TMJ abnormality and oral opening not small Thyromental Distance: < 3.5 Finger Breadths Mallampati Class: I Mouth / Teeth: 1. Some sort of covering per patient Neck normal visual inspection, + short neck and + thick neck; neck extension not limited Respiratory normal respiratory effort Auscultation: lungs clear to auscultation bilaterally Cardiovascular Rate/Rhythm: regular rate and regular rhythm Heart Sounds: no murmur Neurologic moves all extremities Psychiatric Orientation: alert and oriented x 3 Testing Laboratory Results 01/08/20 08:11 01/08/20 08:11 Urine Color Dark Yellow 01/08/20 11:15 Urine Appearance Clear (Clear) 01/08/20 11:15 Urine pH 5.0 (4.5-7.5) 01/08/20 11:15 Ur Specific [place] 1.029 (1.000-1.030) 01/08/20 11:15 Urine Protein Negative (Negative) 01/08/20 11:15 Urine Glucose (UA) Negative (Negative) 01/08/20 11:15 Urine Ketones Trace (Negative) H 01/08/20 11:15 Urine Nitrite Negative (Negative) 01/08/20 11:15 Ur Leukocyte Esterase Negative (Negative) 01/08/20 11:15 Electrocardiogram Date: 01/08/20 Findings: + NSR @ (64)
[2020-01-08] MEDS ORDERED: fentaNYL citrate 100 MCG/2 ML VIAL ONE (14:26)
[2020-01-08] MEDS ORDERED: MIDAZOLAM HCL 1 MG/ML 2ML VIAL ONE (14:27)
[2020-01-08] MEDS ORDERED: ATROPINE SULFATE 0.1 MG/ML 10ML SYR IV PRN (15:08)
[2020-01-08] MEDS ORDERED: ePHEDrine sulfate 50 MG/ML AMP IV PRN (15:08)
[2020-01-08] MEDS ORDERED: fentaNYL citrate 100 MCG/2 ML VIAL IV PRN (15:08)
[2020-01-08] MEDS ORDERED: SUCCINYLCHOLINE CHLORIDE 20 MG/ML 10 ML VIAL IV ONE (15:18)
[2020-01-08] MEDS ORDERED: LIDOCAINE HCL 2% 2 ML VIAL/AMP(20MG/ML) INFIL ONE (15:18)
[2020-01-08] MEDS ORDERED: PROPOFOL IV EMULSION 10 MG/ML 20 ML VIAL IV ONE (15:18)
[2020-01-08] MEDS ORDERED: ROCURONIUM BROMIDE 10 MG/ML 5 ML VIAL IV ONE (15:18)
[2020-01-08] MEDS ORDERED: ONDANSETRON INJ 2 MG/ML 2 ML VIAL ONE (15:18)
--- NOTE | 2020-01-08 16:00 | GI REPORT ---
Patient Name: Yuki Sethi Procedure Date: 01/08/2020 2:34 PM Date of : 1960 Admit Type: Outpatient Age: 59 Gender: Female Attending MD: Omar Sawant MD Procedure: Upper GI endoscopy Providers: Omar Sawant MD Referring MD: Omar Sawant MD Indications: Foreign body in the esophagus Medicines: Monitored Anesthesia Care Complications: No immediate complications. Estimated blood loss: None. Estimated Blood Loss: Estimated blood loss: none. Procedure: Pre-Anesthesia Assessment: - Prior Anticoagulants: The patient has taken no previous anticoagulant or antiplatelet agents. - ASA Grade Assessment: III - A patient with severe systemic disease. After obtaining informed consent, the endoscope was passed under direct vision. Throughout the procedure, the patient's blood pressure, pulse, and oxygen saturations were monitored continuously. The Endoscope was introduced through the mouth, and advanced to the second part of duodenum. The upper GI endoscopy was accomplished without difficulty. The patient tolerated the procedure well. Findings: Food was found in the distal esophagus. Removal of food was accomplished using Vargas net and graspers. One mild stenosis was found. The stenosis was traversed. A TTS dilator was passed through the scope. Dilation with a 15-16.5-18 mm balloon dilator was performed to 16.5 mm. Estimated blood loss: none. A large hiatal hernia was present. The anastomosis was normal. Evidence of previous bypass surgery was noted. The examined duodenum was normal. Impression: - Food in the distal esophagus. Removal was successful. - Esophageal stenosis. Dilated. - Large hiatal hernia. - Normal anastomosis. - Normal examined duodenum. Recommendation: - [facility]. - NPO today. Clear liquid diet starting tomorrow morning if stable - supportive care -will need outpatient thoracic surgery evaluation for hiatal hernia repair -follow up in the GI office as an outpatient Omar Sawant MD 01/08/2020 3:59:55 PM This report has been signed electronically. Note Initiated On: 01/08/2020 2:34 PM Number of Addenda: 0 I attest to the content of the Intraoperative Record and orders documented therein, exceptions below {[id number]}
--- NOTE | 2020-01-08 16:27 | Anesthesiology Progress Note ---
Date of Service January 08, 2020 Anesthesia Post Procedure Vital Signs Vital Signs: Temp Pulse Pulse Pulse Resp BP BP 01/08/20 16:20 76 25 H 147/73 H 01/08/20 16:13 36.3 C L 75 16 145/72 H 01/08/20 13:05 36.7 C 64 20 157/81 H 01/08/20 11:46 71 16 169/87 H 01/08/20 10:14 68 16 154/85 H 01/08/20 09:29 62 20 183/105 H 01/08/20 07:43 37.1 C 76 18 162/93 H Pulse Ox 01/08/20 16:20 91 01/08/20 16:13 96 01/08/20 13:05 97 01/08/20 11:46 95 01/08/20 10:14 95 01/08/20 09:29 98 01/08/20 07:43 96 Pain Intensity Abdomen: Pain Intensity: 3 Transfer of Care Handoff Completed per policy Notes Mental Status: alert / awake / arousable and participated in evaluation Patient Amnestic to Procedure: Yes Nausea / Vomiting: adequately controlled Pain: adequately controlled Airway Patency, RR, SpO2: stable & adequate BP & HR: stable & adequate Hydration State: stable & adequate Anesthetic Complications: no major complications apparent and Pt Satisfied with anesthetic care
--- NOTE | 2020-01-08 16:39 | Electrocardiogram Report ---
Test Reason : Blood Pressure : / mmHG Vent. Rate : 064 BPM Atrial Rate : 064 BPM P-R Int : 182 ms QRS Dur : 104 ms QT Int : 454 ms P-R-T Axes : 044 047 055 degrees QTc Int : 468 ms Normal sinus rhythm Normal ECG When compared with ECG of 19-OCT-2012 04:25, No significant change was found Confirmed by Broderick Tovar ([id number]) on 01/08/2020 4:38:37 PM Referred By: REFERRED SELF Confirmed By:Pardeep Tovar
[2020-01-08] MEDS ORDERED: ACETAMINOPHEN 1,000 MG/100 ML VIAL IV STA (17:23)
[2020-01-08] MEDS ORDERED: LORazepam 1 MG TAB SL PRN (19:25)
[2020-01-08] MEDS ORDERED: MoRPHine SULFATE 2 MG/ML CARP IV STA (19:25)
[2020-01-09] MEDS: KETOROLAC TROMETHAMINE 15 MG/ML VIAL IV PRN ×2 (04:17→11:08)
--- NOTE | 2020-01-09 12:29 | Discharge Summary ---
Date of Service January 09, 2020 Admission HPI Per Admitting Provider This is a 59-year-old female with PMH of HTN, HLD, anxiety, depression and history of gastric bypass who presents for nausea and vomiting beginning last evening. Patient ate dinner of rice and ground beef around 1800 last evening and subsequently afterwards became nauseated and had multiple bouts of emesis. Tried to eat crackers and drink tea later that evening but was unable to keep them down. Remains nauseous with a burning abdominal discomfort. Denies any fever, chills, unusual foods. No sick contacts. Has history of gastric bypass surgery with difficulty of food boluses in the past that she has mainly been able to clear on her own. Has required EGD for disimpaction of food bolus once in 2018. Seen and examined on the floor in 288-1 after EGD. Feeling well aside some post- surgical discomfort of throat and frontal headache that she has had since this morning. Denies fever, chills, lightheadedness, visual changes, chest pain, shortness of breath, abdominal pain, nausea, dysuria, diarrhea or constipation. Admission Exam Per Admitting Provider General Appearance: WD/WN, vitals as above, NAD, sitting up in bed, pleasant, conversing easily Head: normocephalic, atraumatic Eyes: normal inspection, PERRL, conjunctivae normal, anicteric sclerae ENT: external ear and nose normal, oropharynx normal Neck: trachea midline, no thyromegaly normal visual inspection Respiratory: normal respiratory effort, lungs clear to auscultation, no wheeze, rales, rhonchi Cardiovascular: regular rate, rhythm, no murmur, normal peripheral pulses. Vessels: no JVD or carotid bruit Chest: normal inspection of chest Abdomen/GI: normal bowel sounds, soft, nontender, no hepatosplenomegaly Extremities/Musculoskeletal: no cyanosis or clubbing, extremities motor strength 5/5 Neurologic: PERRL, EOMI, accommodation nl, no face palsy, no dysarthria, CN's II-XI intact bilaterally and moves all extremities Psychiatric: A+Ox3, euthymic affect Skin: no rashes, normal color, warm/dry Principal Diagnosis Esophageal stenosis Large hiatal hernia Discharge Exam Constitutional + well hydrated and + obese; no acute distress Eyes PERRL, conjunctivae normal, anicteric sclerae ENMT external ear and nose normal, oropharynx normal Respiratory normal respiratory effort, lungs clear to auscultation Cardiovascular RRR, no murmur, no edema Gastrointestinal (Abdomen) normal bowel sounds, soft, nontender, no hepatosplenomegaly Musculoskeletal no cyanosis or clubbing, extremities motor strength 5/5 Neurologic PERRL, EOMI, accommodation nl, no face palsy, no dysarthria Psychiatric A+Ox3, euthymic affect Discharge Data Allergies Allergy/AdvReac Type Severity Reaction Status Date / Time pamabrom [From [facility]] AdvReac Unknown Hives Unverified 01/08/20 08:08 caffeine AdvReac Verified 01/09/20 13:39 Cinnamedrine Allergy Unknown HIVES Uncoded 09/12/17 15:10 Consultations 01/08/20 11:33 ED Decision to Admit Stat 01/08/20 12:10 Consult Gastroenterology Routine Procedures Performed Operation Date: 01/08/20 12:55 Actual Procedures p Esophagogastroduodenoscopy for diation and foreign body removal - Omar Sawant MD Food was found in the distal esophagus. Removal of food was accomplished using Vargas net and graspers. One mild stenosis was found. The stenosis was traversed. A TTS dilator was passed through the scope. Dilation with a 15-16.5-18 mm balloon dilator was performed to 16.5 mm. Estimated blood loss: none. A large hiatal hernia was present. The anastomosis was normal. Evidence of previous bypass surgery was noted. The examined duodenum was normal. Impression: - Food in the distal esophagus. Removal was successful. - Esophageal stenosis. Dilated. - Large hiatal hernia. - Normal anastomosis. - Normal examined duodenum. Hospital Course (1) Esophageal stenosis: (2) Hiatal hernia: (3) History of gastric bypass: (4) Food impaction of esophagus: 59-year-old female with PMH of HTN, HLD, anxiety, depression and history of gastric bypass who presents for nausea and vomiting beginning evening prior to presentation Was evaluated by GI and had EGD EGD showed food in distal esophagus which was removed and mild stenosis which was dilated. Patient doing well this morning and tolerating diet well Patient discharged home to follow up with GI clinic Needs outpatient thoracic surgery evaluation for hiatal hernia repair (5) Headache: Likely 2/2 ntg paste patient was given yesterday Headache improved Continue tylenol prn (6) Hypertension: Continue home amlodipine and lisinopril (7) Depression: (8) Anxiety: Continue bupropion, seroquel and trazodone Total Time Total Time Spent Total Time Spent (In Minutes): 25 Total Time Includes: Examination of the Patient, Discharge Planning, Medication Reconciliation and Communication With Other Providers Discharge Plan Discharge Items Patient Disposition: Home - Self-Care Reason For Visit: NAUSEA,VOMITING,DIFFICULTY SWALLOWING Discharge Diagnosis: Esophageal stenosis Large hiatal hernia Activity: Resume your previous activity Non-emergency contact: Primary Care Provider and Health Safety Specialist Call non-emergency contact if: you have any medication questions and your symptoms worsen Follow-up/Referrals: Sierra Cisneros MD [Physician] - Diet: Heart Healthy Diet Texture: Easy to Chew Addtl Attending Provider Instructions: Ms Sethi. You came to the hospital for difficulty swallowing. You were evaluated with endoscopy (EGD) and was found to have esophageal stenosis which was dilated. You also have a hiatal hernia. It is very important that your follow up with Gastroenterology outpatient Please also follow up with Surgery for further evaluation and management of your hiatal hernia. Please eat soft diet. It was a pleasure taking care of you Pending Studies at Discharge: No Stand-Alone Forms: My [facility] wooju, Smoking Cessation Medications and DC Order Prescriptions: Continued quetiapine 25 mg tablet 25 mg PO HS RF: 0 trazodone 50 mg tablet 50 mg PO HS RF: 0 amlodipine 5 mg tablet 5 mg PO QAM RF: 0 lisinopril 10 mg tablet 10 mg PO QAM RF: 0 bupropion HCl 300 mg tablet extended release 24 hr 300 mg PO DAILY RF: 0 Discharge Orders: Discharge Order (Routine); Ordered 01/09/20 Ordered By: Joi Maciel Admission Data Admit Date/Time: 01/08/20 12:11 Attending Provider: Joi Maciel I. Admit Provider: Bere Piedra Primary Care Provider: PCP,NO Other Providers: Bere Piedra ; Wilfredo Rivera ; Elaine Knowles ; Alethea Yanez ; Omar Sawant Other Interventions: Discharge Summary Assessment (RN) Last Done: 01/09/20 12:35 DC Date/Time DO NOT enter until pt leaves facility: 01/09/20 13:51
== END 2020-01-09 13:51 | disposition home or self-care (01) ==
LOC: ED 07:40 → 2N 11:30 → SUATTDRO 12:11 → OR 12:28